=== PATIENT | male | born 1975 | race Caucasian/White ===

== ENCOUNTER → 2019-08-26 | Day surgery (SDC) | payer BC ==
--- NOTE | 2019-08-25 11:10 | Diagnostic Imaging Report ---
Chest, PA and lateral. History: Preoperative evaluation for foot surgery. Comparison: None available. Discussion: The cardiomediastinal silhouette and pulmonary vasculature are within normal limits. The lungs are clear without evidence of consolidation or effusion. There are no acute osseous abnormalities. The soft tissues are unremarkable. IMPRESSION: No radiographic evidence of acute cardiopulmonary abnormality. Signed by: Federico Magallon MD on 08/25/2019 11:07 AM
[~2019-08-26] MED LIST: BUPIVACAINE HCL 0.5% INJ 30 ML VIAL INJ ONE; CEFAZOLIN SOD 1 GM/NS 50ML 50 ML IV ONE; DEXAMETHASONE SOD PHOS INJ 4 MG/ML VIAL ONE; FENTANYL CITRATE/PF 100MCG/2 ML INJ ONE; KETOROLAC TROMETHAMINE 30 MG/ML VIAL ONE; LIDOCAINE HCL 2% LOCAL INJ 5 ML SDV VIAL INJ ONE; MIDAZOLAM HCL 2 MG/2 ML VIAL ONE; NAPROXEN250 MG PO; ONDANSETRON HCL INJ 2MG/ML 2ML 2 MG/ML VIAL ONE; PROPOFOL IV EMULSION 10 MG/ML 20 ML VIAL ONE; SEVOFLURANE INHAL SOLN 250 ML PEN BTL ONE
--- OUTSIDE RECORDS SUMMARY | 2019-08-26 05:34 | XMS REPORT ---
Author Author [facility] Address Unknown Phone Unavailable Care Team Providers Care Rigging [place]linger Name Role Phone Loretta PA Unavailable Unavailable Problems This patient has no known problems. Allergies, Adverse Reactions, Alerts This patient has no known allergies or adverse reactions. Medications This patient has no known medications. Results Test Description Test Time Test Comments Text Results Atomic Results Result Comments CHEST 2 VIEWS 2019-08-25 11:06:00 [place] [address] Patient Name: AMY MURPHY MR #: [id number] : 1975 Age/Sex: 43/M Req #: [id number] Adm Physician: Ordered by: Loretta PA DPM Report #: [id number] Location: OR Room/Bed: Procedure: [id number] DX/CHEST 2 VIEWS Exam Date: 08/25/19 Exam Time: 1051 REPORT STATUS: Signed Chest, PA and lateral. History: Preoperative evaluation for foot surgery. Comparison: None available. Discussion: The cardiomediastinal silhouette and pulmonary vasculature are within normal limits. The lungs are clear without evidence of consolidation or effusion. There are no acute osseous abnormalities. The soft tissues are unremarkable. IMPRESSION: No radiographic evidence of acute cardiopulmonary abnormality. Signed by: Federico Newsome MD on 08/25/2019 11:07 AM Dictated By: FEDERICO NEWSOME MD 06 Transcribed By: ROWDY on 08/25/191106 COPY TO: Loretta PA DPM
--- NOTE | 2019-08-26 07:05 | NUR ---
SPIRITUAL CARE - Pre-Surgery Assessment: Pt in bed. Pt's at bedside. Pt identified as Denominational. Pt reported supportive attention from family and friends. Intervention: I provided pastoral presence, hospitality, and sympathetic listening. I acquainted pt with availability of chief operator hydroformer while hospitalized. Outcome: Pt expressed appreciation for visit. No need for follow up indicated at this time. RAJAT Brownelain Spiritual Care Department O: [phone] Pager: [phone] ([phone] number calling from)
[2019-08-26 09:15] VITALS: BP 119/67
--- NOTE | 2019-08-26 10:44 | Operative Report ---
DATE OF PROCEDURE: 08/26/2019 SURGEON: Josefina Resendiz DPM PREOPERATIVE DIAGNOSIS: Left 5th metatarsal fracture. POSTOPERATIVE DIAGNOSIS: Left 5th metatarsal fracture. PLANNED PROCEDURE: Left 5th metatarsal open reduction and internal fixation. ANESTHESIA: General with a postoperative block consisting of 20 mL of 0.5% Marcaine plain with no steroid. HEMOSTASIS: Pneumatic thigh tourniquet set at 350 mmHg for a total time of approximately 25 minutes. MATERIALS: [place] 4-0 x 55 mm cannulated cortical bone screw, partially-threaded 3-0 Vicryl, 4-0 Prolene. ESTIMATED BLOOD LOSS: Less than 10 mL. PATHOLOGY: None. PROCEDURE NOTE: The patient was seen in the preoperative waiting room, where the correct procedure and site were identified. The patient was brought to the operative room and placed on the operating table in the supine position. General anesthesia was initiated. At this time, a well-padded pneumatic tourniquet was placed about the patient's left thigh. The left foot, ankle, and leg was then scrubbed, prepped, and draped in the usual aseptic manner. The left foot, ankle, and leg was exsanguinated with an Esmarch bandage and the pneumatic thigh tourniquet was inflated to 350 mmHg for a total time of approximately 25 minutes. Attention was directed to the lateral aspect of the patient's left 5th metatarsal, where a 4 cm linear incision was made directly over the fracture site. The dissection was carried down to the level of bone. The hematoma was debrided and the fracture site was reduced utilizing techniques of manipulation and distraction. Next, a second stab incision was made proximal to the 5th metatarsal base, where a guidewire was placed across the fracture site and confirmed to be in correct location via intraoperative fluoroscopy. Per manufacture protocol, the guidewire was then drilled and tapped. A 4.0 mm x 55 mm cannulated July partially-threaded bone screw was placed across the fracture site. Fixation site is stable and confirmed via intraoperative fluoroscopy. The wound was then copiously irrigated with sterile saline. Deep tissue was reapproximated with 3-0 Vicryl. Subcutaneous tissue with 3-0 Vicryl. The skin was closed using a running interlocking stitch with 4-0 Prolene. The patient tolerated the procedure and anesthesia well. The patient was transferred to the postoperative recovery unit with vital signs stable and vascular status intact. The patient was monitored there for a short period time before being sent home with the following written and oral instructions: 1. Keep the dressing clean, dry, and intact. 2. The patient is to remain nonweightbearing in a posterior splint to avoid any ambulation until being seen in the office. 3. The patient was given office number and instructed to contact us if any problems arise. LUCHO Rodarte/MODL /[id number]
== END | disposition home or self-care (01) ==
LOC: OR 05:33
PROVIDERS: ATTEND Podiatrist Foot & Ankle Surgery
DX: S92.352A Displaced fracture of fifth metatarsal bone, left foot, initial encounter for closed fracture (principal); X58.XXXA Exposure to other specified factors, initial encounter; Z01.810 Encounter for preprocedural cardiovascular examination; Z01.818 Encounter for other preprocedural examination
CPT/HCPCS: 28485; 71046; 93005; C1713; C1769; J0690; J1100; J1885; J2001; J2250; J2405; J2704; J3010